=== PATIENT | male | born 1975 | race Two or more races ===

== ENCOUNTER 2016-10-17 17:30 | Emergency (ER) | payer OTHER ==
[~2016-10-17] VITALS: Ht 182.9 cm; Wt 140.6 kg
[2016-10-17 18:19] LABS: Basophils # (auto) 0 uL; Basophils % (auto) 0.3 % (0.0-2.0); CONDITION Y; Eosinophils # (auto) 0 uL; Eosinophils % (auto) 0.5 % (0.0-7.0); Hematocrit 46.4 % (41.0-53.0); Lymphocytes # (auto) 1.9 uL; Lymphocytes % (auto) 19.7 % (10.0-50.0); Mean Corpuscular Hgb Conc. 34.4 g/dL (32.0-36.0); Mean Corpuscular Volume 92.8 fL (80.0-100.0); Mean Platelet Volume 8.6 fL (7.4-10.4); Monocytes # (auto) 0.7 uL; Monocytes % (auto) 7.7 % (0.0-12.0); Neutrophils # (auto) 6.9 uL; Neutrophils % (auto) 71.8 % (37.0-80.0); Platelet Count (auto) 280 10^3/uL (140-450); Red Cell Distribution Width 14.2 % (11.6-16.0); White Blood Cell 9.6 10^3/uL (4.4-10.8)
[2016-10-17 18:41] LABS: Albumin 4.5 g/dL (3.4-5.0); Alkaline Phosphatase 95 U/L (45-117); Anion Gap 10 (5-15); Aspartate Aminotransferase 18 U/L (15-37); BUN/Creatinine Ratio 13.7; Bilirubin, Total 1.2 mg/dL (0.2-1.0); Blood Urea Nitrogen 21 mg/dL (7-18); Carbon Dioxide 27 mmol/L (21-32); Chloride 101 mmol/L (98-107); GFR African American 65 mL/min; GFR Non-African American 53 mL/min; Glucose 97 mg/dL (74-106); Magnesium 2.3 mg/dL (1.6-2.6); Sodium 138 mmol/L (136-145); Total Protein 8.7 g/dL (6.4-8.2)
[2016-10-17] MEDS ORDERED: SODIUM CHLORIDE 0.9% 1,000 ML IV ONE (20:15)
[2016-10-17 21:04] LABS: INR 0.98 (0.9-1.15); Partial Thromboplastin Time 26.6 sec (22.64-33.71); Prothrombin Time 10.7 sec (9.37-12.3)
[2016-10-17 21:49] LABS: B-Type Natriuretic Peptide 4.72 pg/mL (0-100)
[2016-10-17 21:50] LABS: Temperature: 22.4 C (20.0-25.0)
[2016-10-17 21:51] VITALS: BP 134/81
== END 2016-10-17 22:45 | disposition home or self-care (01) ==
LOC: ER 17:32
DX: R07.89 Other chest pain (principal); E86.0 Dehydration; M79.622 Pain in left upper arm; M54.9 Dorsalgia, unspecified; I10 Essential (primary) hypertension
CPT/HCPCS: 36415; 71020; 80053; 83735; 83880; 84484; 85025; 85610; 85730; 93005; 96360; 96361

== ENCOUNTER 2017-07-20 16:47 | Emergency (ER) | payer OTHER ==
[~2017-07-20] VITALS: Ht 185.4 cm; Wt 145.1 kg
[2017-07-20 18:35] LABS: Basophils # (auto) 0 uL; Basophils % (auto) 0.7 % (0.0-2.0); Eosinophils # (auto) 0.1 uL; Eosinophils % (auto) 2.3 % (0.0-7.0); Hematocrit 45.7 % (41.0-53.0); Hemoglobin 15.3 g/dL (13.5-17.5); Lymphocytes # (auto) 1.9 uL; Lymphocytes % (auto) 31.9 % (10.0-50.0); Mean Corpuscular Hemoglobin 31.9 pg (28.0-32.0); Mean Corpuscular Hgb Conc. 33.5 g/dL (32.0-36.0); Mean Corpuscular Volume 95.3 fL (80.0-100.0); Monocytes # (auto) 0.6 uL; Neutrophils # (auto) 3.3 uL; Neutrophils % (auto) 55.1 % (37.0-80.0); Nucleated Red Blood Cells % 0.4 %; Platelet Count (auto) 243 10^3/uL (140-450); Red Cell Distribution Width 14.4 % (11.8-14.3); White Blood Cell 5.9 10^3/uL (4.4-10.8)
[2017-07-20 18:56] LABS: Albumin 4.1 g/dL (3.4-5.0); Anion Gap 9 (5-15); Blood Urea Nitrogen 21 mg/dL (7-18); Calcium 8.9 mg/dL (8.5-10.1); Carbon Dioxide 26 mmol/L (21-32); Chloride 104 mmol/L (98-107); Glucose 108 mg/dL (74-106); Magnesium 2.2 mg/dL (1.6-2.6); Sodium 139 mmol/L (136-145)
[2017-07-20 18:59] LABS: Alanine Aminotransferase 24 U/L (16-61); Aspartate Aminotransferase 13 U/L (15-37); BUN/Creatinine Ratio 16.3; GFR African American 78 mL/min; GFR Non-African American 65 mL/min
[2017-07-20 19:04] LABS: Alkaline Phosphatase 94 U/L (45-117); Bilirubin, Total 0.7 mg/dL (0.2-1.0); Total Protein 7.9 g/dL (6.4-8.2)
[2017-07-21 00:48] VITALS: BP 139/83
== END 2017-07-21 02:41 | disposition home or self-care (01) ==
LOC: ER 16:50
DX: R07.89 Other chest pain (principal); M94.0 Chondrocostal junction syndrome [Tietze]; I10 Essential (primary) hypertension
CPT/HCPCS: 36415; 71045; 80053; 83735; 84484; 85025; 93005; 94761

== ENCOUNTER 2022-08-14 17:39 | Emergency (ER) | payer OTHER ==
[~2022-08-14] VITALS: Ht 182.9 cm; Wt 142.3 kg
[2022-08-14] MEDS ORDERED: ACETAMINOPHEN 500 MG TAB PO ONE (18:30)
[2022-08-14 18:53] LABS: Basophils # (auto) 0 10 ^3/uL (0-0.2); Basophils % (auto) 0.4 % (0.0-2.0); Eosinophils # (auto) 0.1 10 ^3/uL (0-0.8); Eosinophils % (auto) 1.4 % (0.0-7.0); Hematocrit 43.4 % (41.0-53.0); Lymphocytes # (auto) 1.5 10 ^3/uL (0.4-5.4); Lymphocytes % (auto) 16.2 % (10.0-50.0); Mean Corpuscular Hemoglobin 32.7 pg (28.0-32.0); Mean Corpuscular Hgb Conc. 34.7 g/dL (32.0-36.0); Mean Corpuscular Volume 94.2 fL (80.0-100.0); Monocytes % (auto) 10.6 % (0.0-12.0); Neutrophils # (auto) 6.6 10 ^3/uL (1.6-8.6); Neutrophils % (auto) 71.4 % (37.0-80.0); Red Cell Distribution Width 13.7 % (11.8-14.3); White Blood Cell 9.3 10^3/uL (4.4-10.8)
[2022-08-14 19:14] LABS: Albumin 4.2 g/dL (3.4-5.0); Calcium 9.3 mg/dL (8.5-10.1); Potassium 3.8 mmol/L (3.5-5.1)
[2022-08-14 19:17] LABS: BUN/Creatinine Ratio 14.8 (10.0-20.0); Total Protein 8.4 g/dL (6.4-8.2)
[2022-08-14 19:37] LABS: Urine Bacteria NONE SEEN /hpf (None Seen); Urine Blood 1+ /uL (Negative); Urine Specific Gravity 1.014 (1.001-1.035); Urine WBC 154 /hpf (0 - 3)
[2022-08-14] MEDS ORDERED: levoFLOXacin 250 MG TAB PO ONE (20:00)
[2022-08-14] MEDS ORDERED: LEVO750T8 PO (20:00)
[2022-08-14] MEDS ORDERED: IBUP800T26 PO (20:00)
[2022-08-14] MEDS ORDERED: ACET-1158 PO (20:00)
[2022-08-14 23:00] VITALS: BP 154/80
== END 2022-08-14 23:11 | disposition home or self-care (01) ==
LOC: ER 17:39
DX: N12 Tubulo-interstitial nephritis, not specified as acute or chronic (principal); I10 Essential (primary) hypertension
CPT/HCPCS: 36415; 74176; 80053; 81001; 83690; 85025

== ENCOUNTER 2022-11-29 04:24 | Emergency (ER) | payer OTHER ==
[~2022-11-29] VITALS: Ht 185.4 cm; Wt 142.7 kg
[~2022-11-29 04:24] MED LIST: ACET500T58 PO; IBUP-1455 PO; LEVO750T8 PO
[2022-11-29 05:39] LABS: Urine Bacteria NONE SEEN /hpf (None Seen); Urine Blood 2+ /uL (Negative); Urine Clarity Clear (Clear); Urine Color Yellow (Yellow); Urine Mucus FEW (None Seen); Urine Protein, UAD TRACE (Negative); Urine Specific Gravity 1.018 (1.001-1.035); Urine Urobilinogen Normal (Negative); Urine WBC 3 /hpf (0 - 3); Urine pH 5.5 (5.0-8.0)
[2022-11-29 05:42] LABS: Basophils # (auto) 0 10 ^3/uL (0-0.2); Basophils % (auto) 1.1 % (0.0-2.0); Eosinophils # (auto) 0 10 ^3/uL (0-0.8); Eosinophils % (auto) 0.6 % (0.0-7.0); Hematocrit 44.3 % (41.0-53.0); Hemoglobin 15.1 g/dL (13.5-17.5); Lymphocytes # (auto) 0.7 10 ^3/uL (0.4-5.4); Lymphocytes % (auto) 16.8 % (10.0-50.0); Mean Corpuscular Hemoglobin 32.1 pg (28.0-32.0); Mean Corpuscular Hgb Conc. 34.2 g/dL (32.0-36.0); Monocytes # (auto) 0.5 10 ^3/uL (0-1.3); Monocytes % (auto) 12.5 % (0.0-12.0); Neutrophils # (auto) 2.7 10 ^3/uL (1.6-8.6); Red Blood Cells 4.71 10^6/uL (4.5-5.90); Red Cell Distribution Width 13.9 % (11.8-14.3)
[2022-11-29 06:02] LABS: Alanine Aminotransferase 16 U/L (7-40); Albumin 4.5 g/dL (3.2-4.8); Alkaline Phosphatase 80 U/L (46-116); Anion Gap 1.2 (5-15); Aspartate Aminotransferase < 8 U/L (13-40); BUN/Creatinine Ratio 7.2 (10.0-20.0); Bilirubin, Total 0.6 mg/dL (0.2-1.0); Blood Urea Nitrogen 8 mg/dL (9-23); Calcium 9.2 mg/dL (8.5-10.1); Carbon Dioxide 28.8 mmol/L (20-30); Chloride 106 mmol/L (98-107); Glucose 129 mg/dL (74-106); Potassium 4.1 mmol/L (3.5-5.1); Sodium 136 mmol/L (136-145); Total Protein 7.5 g/dL (5.7-8.2)
[2022-11-29] MEDS ORDERED: NAPR-1334 PO (08:50)
[2022-11-29 09:04] VITALS: BP 151/71; PULSE 94; RESP 18; TEMP 97.9; O2SAT 99
== END 2022-11-29 09:08 | disposition home or self-care (01) ==
LOC: ER 04:24
DX: R10.9 Unspecified abdominal pain (principal); I10 Essential (primary) hypertension; Z79.1 Long term (current) use of non-steroidal anti-inflammatories (NSAID); Z79.2 Long term (current) use of antibiotics; Z79.899 Other long term (current) drug therapy
CPT/HCPCS: 36415; 74176; 80053; 81001; 85025